=== PATIENT | male | born 1995 | race Caucasian/White ===

== ENCOUNTER 2018-06-11 22:12 | Inpatient (IN) | payer MEDICAID ==
[~2018-06-11] VITALS: Ht 182.9 cm; Wt 122.0 kg
[2018-06-11 22:18] VITALS: Ht 182.9 cm; Wt 122.0 kg
[2018-06-11] MEDS ORDERED: QVAR REDIHALE10.6 G1 (23:38)
[2018-06-11] MEDS ORDERED: PROL (23:39)
[2018-06-12] VITALS (8 sets, daily range): BP systolic 100–142; BP diastolic 54–83
[2018-06-12 00:20] LABS: BASOPHIL % 0.4 % (0-2); PLATELET COUNT 308 x10^3mcL (130-400); RED CELL DISTRIBUTION WIDTH 13.8 % (11.5-14.5)
[2018-06-12 00:44] LABS: AMYLASE 27 U/L (25-115); CALCIUM 8.7 mg/dL (8.5-10.1); CARBON DIOXIDE 28.5 mmol/L (21-32); CHLORIDE SERUM 101 mmol/L (98-107); CHOLESTEROL 144 mg/dL (<200); CHOLESTEROL/HDL RATIO 3.6; CREATININE SERUM 1.5 mg/dL (0.7-1.3); GFR1 > 60 mL/min; GLUCOSE SERUM 114 mg/dL (74-106); HDL CHOLESTEROL 40 mg/dL (40-60); LIPASE 63 IU/L (73-393); MAGNESIUM 2.9 mg/dL (1.8-2.4); PHOSPHOROUS 2.8 mg/dL (2.5-4.9); POTASSIUM SERUM 3.2 mmol/L (3.5-5.1); SODIUM SERUM 141 mmol/L (136-145); TRIGLYCERIDES 139 mg/dL (<150)
[2018-06-12 01:43] LABS: FREE T4 1.14 ng/dL (0.76-1.46); FREE THYROXINE INDEX 2.4 ug/dL (1.4-4.5); T4(THYROXINE) 7.1 ug/dL (4.7-13.3)
[2018-06-12 02:11] LABS: T3 TOTAL 1.46 ng/mL
[2018-06-12 04:20] LABS: microscopic required? NO
[2018-06-12 04:31] LABS: urine erythrocyte NEGATIVE (NEGATIVE)
[2018-06-12 04:38] LABS: AMPHETAMINE QUAL UR NONE DETECTED (See below)
[2018-06-12 06:28] LABS: PLATELET COUNT 351 x10^3mcL (130-400); RED CELL DISTRIBUTION WIDTH 13.9 % (11.5-14.5)
[2018-06-12 06:39] LABS: CALCIUM 8.8 mg/dL (8.5-10.1); CARBON DIOXIDE 24.6 mmol/L (21-32); CREATININE SERUM 1.8 mg/dL (0.7-1.3); POTASSIUM SERUM 4.2 mmol/L (3.5-5.1)
[2018-06-12 10:05] LABS: ATYPICAL LYMPH 1 %; BAND NEUTROPHIL 2 % (0-10); BASOPHIL 0 % (0-2); MONOCYTE 3 % (0-7); SEGMENTED NEUTROPHILS 94 % (37-75)
[2018-06-12 10:08] LABS: PLATELET MORPHOLOGY PLATELETS NORMAL; rbc morphology (normal/abnorm) ABNORMAL (NORMAL)
[2018-06-13 05:38] VITALS: BP 118/62
[2018-06-13 06:28] LABS: PLATELET COUNT 336 x10^3mcL (130-400); RED CELL DISTRIBUTION WIDTH 14.1 % (11.5-14.5)
[2018-06-13 06:41] LABS: CALCIUM 8.6 mg/dL (8.5-10.1); CARBON DIOXIDE 30.3 mmol/L (21-32); CHLORIDE SERUM 105 mmol/L (98-107); CREATININE SERUM 1.2 mg/dL (0.7-1.3); GFR1 > 60 mL/min; GLUCOSE SERUM 139 mg/dL (74-106); MAGNESIUM 2.7 mg/dL (1.8-2.4); PHOSPHOROUS 4.3 mg/dL (2.5-4.9); SODIUM SERUM 140 mmol/L (136-145)
[2018-06-13 10:35] VITALS: BP 132/71
[2018-06-13 12:51] LABS: BAND NEUTROPHIL 8 % (0-10); BASOPHIL 0 % (0-2); MONOCYTE 1 % (0-7); PLATELET MORPHOLOGY LARGE PLATELET SEEN; SEGMENTED NEUTROPHILS 87 % (37-75); rbc morphology (normal/abnorm) ABNORMAL (NORMAL); tear drop cell (dacryocyte) 1+
[2018-06-13 16:51] VITALS: BP 118/68
[2018-06-13 19:30] VITALS: BP 120/57
[2018-06-14 05:43] VITALS: BP 129/69
[2018-06-14 06:20] LABS: PLATELET COUNT 327 x10^3mcL (130-400); RED CELL DISTRIBUTION WIDTH 13.8 % (11.5-14.5)
[2018-06-14 06:59] LABS: CALCIUM 8.4 mg/dL (8.5-10.1); CARBON DIOXIDE 30.3 mmol/L (21-32); CHLORIDE SERUM 104 mmol/L (98-107); CREATININE SERUM 1.1 mg/dL (0.7-1.3); GFR1 > 60 mL/min; GLUCOSE SERUM 120 mg/dL (74-106); POTASSIUM SERUM 3.7 mmol/L (3.5-5.1); SODIUM SERUM 136 mmol/L (136-145)
[2018-06-14 09:40] VITALS: BP 150/89
[2018-06-14 11:18] LABS: BAND NEUTROPHIL 8 % (0-10); BASOPHIL 0 % (0-2); MONOCYTE 3 % (0-7); PLATELET MORPHOLOGY PLATELETS NORMAL; SEGMENTED NEUTROPHILS 86 % (37-75); rbc morphology (normal/abnorm) NORMAL (NORMAL)
[2018-06-14] MEDS ORDERED: LEVOFLOXACIN500 M1 PO (11:49)
[2018-06-14] MEDS ORDERED: PREDNISONE10 MG PO ×2 (11:50→11:51)
[2018-06-14] MEDS ORDERED: PREDNISONE20 MG PO (11:50)
[2018-06-14 12:07] VITALS: BP 150/89
== END 2018-06-14 12:52 | disposition home or self-care (01) | DRG 141 ==
LOC: ED 22:12 → DU 23:34 → MU 23:34 → DU 06-12 05:11
PROVIDERS: Family Medicine; Internal Medicine
DX: J45.901 Unspecified asthma with (acute) exacerbation (principal); N17.0 Acute kidney failure with tubular necrosis; J96.01 Acute respiratory failure with hypoxia; E86.0 Dehydration; E87.6 Hypokalemia; E83.41 Hypermagnesemia; F12.10 Cannabis abuse, uncomplicated; F14.10 Cocaine abuse, uncomplicated; Z68.35 Body mass index [BMI] 35.0-35.9, adult
CPT/HCPCS: 36600; 83880; 84439; J1644; J1956; J2060; J2920; J2930; J3475; J7030; J7620; J7626; Q0092

== ENCOUNTER 2018-12-28 20:24 | Inpatient (IN) | payer MEDICAID ==
[~2018-12-28] VITALS: Ht 182.9 cm; Wt 105.7 kg
[~2018-12-28 20:24] MED LIST: LEVOFLOXACIN500 M1 PO; PREDNISONE10 MG PO; PREDNISONE20 MG PO; PROL; QVAR REDIHALE10.6 G1
[2018-12-28 20:29] VITALS: Ht 182.9 cm; Wt 105.7 kg
--- NOTE | 2018-12-28 20:50 | NUR ---
PATIENT SEEN IN ROOM WITH COMPLAINT OD SHORTNESS OF BREATH AND HISTORY OF ASTHMA. RESPIRATORY CALL TO GIVE BREATHING TX.
--- NOTE | 2018-12-28 21:15 | NUR ---
BREATHING TREATMENT IN PROGRESS. SALINE LOCK INSERTED. PATIENT MEDICATED WITH SOLUMEDROL.
--- NOTE | 2018-12-28 22:07 | NUR ---
TORADOL GIVEN FOR COMPLAINT OF BACK PAIN. FLUID BOLUS INFUSING. MAGNESIUM IS INFUSING. PATIENT IS RESTING WITH EYE CLOSED.
--- NOTE | 2018-12-28 22:39 | NUR ---
FLUID BOLUS INFUSED. BREATHING TREATMENT IS IN PROGRESS AT THIS TIME. HEART RATE 120 BPM. PATIENT DENIES ANY PAIN.
--- NOTE | 2018-12-28 23:17 | NUR ---
MAGNESIUM INFUSED. BREATHING TX #2 COMPLETED. PATIENT IS SOCIALIZING WITH FAMILY. EVEN , UNLABORED RESPIRATION. PATIENT EXPRESS HE FEELS MUCH BETTER. PATIENT IS WAITING FOR MD RE-EVALUATION.
--- NOTE | 2018-12-28 23:32 | NUR ---
PATIENT IS ADMETTED TO THE HOSPITAL. AWAITING BED ASSIGNMENT.
--- NOTE | 2018-12-28 23:46 | NUR ---
REPORT WAS GIVEN TO KASHIF. PATIENT WILL BE TRANSPORTED TO ROOM 239B.
[2018-12-28] MEDS ORDERED: VENTOLIN H0.09 MG/A1 INH (23:55)
--- NOTE | 2018-12-29 | NUR ---
PATIENT TRANSPORTED TO THE ROOM 239B
[2018-12-29 00:26] LABS: PLATELET COUNT 310 x10^3mcL (130-400); RED CELL DISTRIBUTION WIDTH 13.3 % (11.5-14.5)
[2018-12-29 00:31] VITALS: BP 117/79; BP 97/79
[2018-12-29 00:40] LABS: CARBON DIOXIDE 28.1 mmol/L (21-32); CHLORIDE SERUM 103 mmol/L (98-107); CREATININE SERUM 1.5 mg/dL (0.7-1.3); GFR1 > 60 mL/min; GLUCOSE SERUM 142 mg/dL (74-106); POTASSIUM SERUM 4.1 mmol/L (3.5-5.1); SODIUM SERUM 141 mmol/L (136-145)
--- NOTE | 2018-12-29 00:45 | NUR ---
RECEIVED FROM ER, PT ADMIT FOR ASTHMA EXACERBATION, PT IS A/O X4, VERBAL RESPONSIVE, ABLE TO TELL WHAT HE NEEDS. LUNG SOUND WHEEZING NABOR, C/O STILL SOB, CALLED RT FOR BREATHING TX, PT IS ON 2L/MIN O2 VIA NC. PO2 96%, PT IS ON TELE 26, ST, HR 120, S/P BREATHING TX. BOWEL SOUND PRESENT ALL 4 QUADRANTS, NO DISTENTION, NO TENDER. PEDAL PULSE PRESENT BOTH FEET, NO EDEMA, IV AT RIGHT HAND, NO LEAKING, NO INFILTRATION. ALL ADLS ASSIST, ALL NEED MET, CALL LIGHT IN REACH, WILL CONTINUE TO MONITOR.
[2018-12-29 00:47] LABS: CHOLESTEROL/HDL RATIO 3.2; MAGNESIUM 2.5 mg/dL (1.8-2.4); PHOSPHOROUS 1.8 mg/dL (2.5-4.9)
[2018-12-29 00:57] LABS: BASOPHIL % 0 % (0-2)
--- NOTE | 2018-12-29 01:57 | NUR ---
PT ON NC 2L/MIN NO SOB NOTED, PT STATES HE FEELS SOMEWHAT BETTER, DENIES CHEST PAIN. IV PATENT, INFUSING WELL. CALL BUTTON WITHIN REACH. WILL MONITOR.
[2018-12-29 04:30] VITALS: BP 131/85
--- NOTE | 2018-12-29 05:00 | NUR ---
PT SLEPT ON AND OFF THOUGHOUT THE NIGHT. BREATHING EVEN AND UNLABORED WITH NO SOB NOTED, NC 2L/MIN RT PROTOCOL. IV PATENT AND INFUSING WELL. PT DENIES ANY PAIN. NO ACUTE DISTRESS NOTED. MEDICATED PER EMAR. CALL BUTTON WITHIN REACH. SAFETY PRECAUTIONS IN PLACE. WILL CONTINUE TO MONITOR AND ENDORSE CARE TO DAY SHIFT RN.
--- NOTE | 2018-12-29 07:09 | NUR ---
RECEIVED PT FROM SHIFT NURSE A/OX4 RESTING IN BED. APPEARS IN NO ACUTE DISTRESS. RESP EVEN AND UNLABORED ON 2L NC. DENIES SOB. IV INTACT AND PATENT. BED IN LOW POSITION. CALL LIGHT WITHIN REACH. WILL CONTINUE TO MONITOR.
[2018-12-29 07:18] LABS: CALCIUM 9.6 mg/dL (8.5-10.1); CARBON DIOXIDE 30.8 mmol/L (21-32); CHLORIDE SERUM 105 mmol/L (98-107); CREATININE SERUM 1.3 mg/dL (0.7-1.3); GFR1 > 60 mL/min; GLUCOSE SERUM 147 mg/dL (74-106); MAGNESIUM 2.6 mg/dL (1.8-2.4); PHOSPHOROUS 2.5 mg/dL (2.5-4.9); SODIUM SERUM 143 mmol/L (136-145)
[2018-12-29 07:19] LABS: PLATELET COUNT 324 x10^3mcL (130-400)
[2018-12-29 07:22] LABS: BASOPHIL % 0 % (0-2)
--- NOTE | 2018-12-29 07:31 | NUR ---
PT AWAKE DENIES ANY PAIN, NO SIGNS OF DISTRESS NOTED. ENDORSED CARE TO DAY SHIFT RN, ALL QUESTIONS ADDRESSED.
[2018-12-29 08:38] VITALS: BP 130/76
--- NOTE | 2018-12-29 10:15 | NUR ---
PT ASLEEP BUT AROUSABLE. NO ACUTE DISTRESS NOTED. CALL LIGHT WITHIN REACH. WILL CONTINUE TO MONITOR.
--- NOTE | 2018-12-29 12:11 | NUR ---
PT REMAINS ASLEEP BUT AROUSABLE. FAMILY MEMBER AT BEDSIDE. CALL LIGHT WITHIN REACH. WILL CONTINUE TO MONITOR.
[2018-12-29 12:27] VITALS: BP 135/82
--- NOTE | 2018-12-29 15:22 | NUR ---
PT RESTING IN BED TALKING WITH FAMILY MEMBERS. NO ACUTE DISTRESS NOTED. DENIES SOB. CALL LIGHT WITHIN REACH. WILL CONTINUE TO MONITOR.
[2018-12-29 17:42] VITALS: BP 137/83
--- NOTE | 2018-12-29 18:26 | NUR ---
PT SITTING UP IN BED RESTING. RESP EVEN AND UNLABORED ON 2L NC. DENIES SOB. HEPLOCK PATENT. BED IN LOW POSITION. CALL LIGHT WITHIN REACH. WILL BE ENDORSED.
--- NOTE | 2018-12-29 20:39 | NUR ---
RECEIVED PT FROM AM SHIFT, PT IS A/O X4, VERBAL RESPONSIVE, ABLE TO TELL WHAT HE NEEDS. LUNG SOUND WHEEZING NABOR, DENY ANY SOB, PT IS ON 2L/MIN O2 VIA NC. PO2 97%, PT IS ON TELE 32, ST, DENY A [place] CHEST PAIN OR DISCOMFORT, BOWEL SOUND PRESENT ALL 4 QUADRANTS, NO DISTENTION, NO TENDER. PEDAL PULSE PRESENT BOTH FEET, NO EDEMA, IV AT RIGHT FA, NO LEAKING, NO INFILTRATION. ALL ADLS ASSIST, ALL NEED MET, CALL LIGHT IN REACH, WILL CONTINUE TO MONITOR.
[2018-12-29 21:03] VITALS: BP 133/66
--- NOTE | 2018-12-29 23:22 | NUR ---
RECEIVED PT FROM DENISE JULIO. AMBULATED TO BATHROOM. DENIES PAIN OR DISCOMFORT AT THIS TIME. NO ACUTE DISTRESS OBSERVED. SAFETY MEASURES IN PLACE. CALL LIGHT WITHIN REACH. WILL CONTINUE TO MONITOR
--- NOTE | 2018-12-30 04:43 | NUR ---
NO SIGNIFICANT CHANGES TO REPORT. PT COMPLIED WITH NURSING CARE THROUGHOUT THE SHIFT WITH NO ACUTE EVENTS OVERNIGHT. NO ACUTE DISTRESS OBSERVED AT THIS TIME. PT LAYING IN BED, BREATHING EVEN AND UNLABORED. AROUSABLE TO VERBAL STIMULI. COMFORT AND SAFETY MEASURES MAINTAINED. ALL NEEDS ASSESSED AND ATTENDED TO. CALL LIGHT WITHIN REACH. WILL CONTINUE TO MONITOR AND ENDORSE CARE TO DAY SHIFT NURSE
[2018-12-30 06:03] VITALS: BP 144/82
[2018-12-30 06:40] LABS: CALCIUM 9.7 mg/dL (8.5-10.1); CARBON DIOXIDE 26.8 mmol/L (21-32); CHLORIDE SERUM 106 mmol/L (98-107); CREATININE SERUM 1.1 mg/dL (0.7-1.3); GFR1 > 60 mL/min; GLUCOSE SERUM 135 mg/dL (74-106); MAGNESIUM 2.2 mg/dL (1.8-2.4); PHOSPHOROUS 3.3 mg/dL (2.5-4.9); POTASSIUM SERUM 4.5 mmol/L (3.5-5.1); SODIUM SERUM 141 mmol/L (136-145)
[2018-12-30 06:50] LABS: BASOPHIL % 0 % (0-2); PLATELET COUNT 327 x10^3mcL (130-400); RED CELL DISTRIBUTION WIDTH 13.8 % (11.5-14.5)
--- NOTE | 2018-12-30 07:15 | NUR ---
AAO X4.DENIES ANY PAIN/DISCOMFORT.LUNG SOUND DIM ON THE BASES.IV SALINE LOCKED.CALL LIGHT WITHIN REACH.INSTRUCTED TO CALL FOR ANY PAIN/DISCOMFORT.WILL CONTINUE TO MONITOT PT.
[2018-12-30] MEDS ORDERED: MONTELUKAST SOD10 M1 PO (09:31)
[2018-12-30] MEDS ORDERED: PREDNISONE20 MG PO (09:31)
[2018-12-30] MEDS ORDERED: ZITHROMAX Z-PA250 MG PO (09:32)
[2018-12-30 09:48] VITALS: BP 152/70
[2018-12-30 09:49] VITALS: BP 152/70
--- NOTE | 2018-12-30 10:08 | NUR ---
PT D/C TO HOME IV AND MONITOR D/C'D.RX AND D/C INSTRUCTION GIVEN PT VERBALIZES UNDERSTANDING.WENT DOWN AMBULATORY ACCOMPANIED BY PRODUCTION SPECIALIST.FRIEND AT MAIN LOBBY WAITING FOR PT.
== END 2018-12-30 10:09 | disposition home or self-care (01) | DRG 141 ==
LOC: ED 20:24 → DU 23:27
PROVIDERS: ADMIT General Practice
DX: J45.901 Unspecified asthma with (acute) exacerbation (principal); N17.0 Acute kidney failure with tubular necrosis; J96.01 Acute respiratory failure with hypoxia; F12.10 Cannabis abuse, uncomplicated; E83.39 Other disorders of phosphorus metabolism; E66.9 Obesity, unspecified; Z68.35 Body mass index [BMI] 35.0-35.9, adult; F17.210 Nicotine dependence, cigarettes, uncomplicated
CPT/HCPCS: 83880; 85378; 94150; 99406; J1885; J2920; J2930; J3475; J3535; J7030; J7620; J7626; Q0092

== ENCOUNTER 2020-09-19 13:50 | Emergency (ER) | payer OTHER, MEDICAID ==
[~2020-09-19] VITALS: Ht 182.9 cm; Wt 119.7 kg
[~2020-09-19 13:50] MED LIST changes: +MONTELUKAST SOD10 M1 PO; +VENTOLIN H0.09 MG/A1 INH; +ZITHROMAX Z-PA250 MG PO
[2020-09-19 14:04] VITALS: BP 159/96; Ht 182.9 cm; Wt 119.7 kg
== END 2020-09-19 14:09 | disposition left against medical advice (07) ==
LOC: ED 13:50
DX: Z53.21 Procedure and treatment not carried out due to patient leaving prior to being seen by health care provider (principal)